=== PATIENT | male | born 2005 | race Two or more races ===

== ENCOUNTER 2024-03-11 12:05 | Outpatient (OUT) | payer OTHER, SELFPAY ==
--- NOTE | 2024-03-11 | XR_ITS ---
The [address] [address] Patient Name: CHARLOTTE GENTILE MRN: [id number] date: 2005 Sex: M Assigned Patient Location: Current Patient Location: Accession/Order Number: [id number] Exam Date: 03/11/2024 12:15 Report Date: 03/11/2024 12:50 At the request of: DEISI RENO Procedure: XR shoulder RT min 2V PROCEDURE: XR shoulder RT min 2V COMPARISON: None. HISTORY: RIGHT SHOULDER PAIN FINDINGS: BONES: No acute fracture or dislocation. The glenohumeral and acromioclavicular joints are intact. There is a subtle area of calcific density noted along the humeral head on the scapular Y view, the exact location cannot be determined SOFT TISSUES:Negative. No visible soft tissue swelling. EFFUSION:None visible. OTHER: Negative. XR/XR shoulder RT min 2V IMPRESSION: Calcific density along the humeral head on scapular Y view only, possibly representing calcific tendinitis Electronically authenticated by: KEE CEDILLO Date: 03/11/2024 12:50
== END 2024-03-11 12:06 | disposition home or self-care (01) ==
LOC: EC 12:05
PROVIDERS: Visit Provider Orthopaedic Surgery
DX: M25.511 Pain in right shoulder (principal)
CPT/HCPCS: 73030

== ENCOUNTER 2024-03-19 13:26 | Day surgery (SDC) | payer OTHER, SELFPAY ==
--- NOTE | 2024-03-19 | MR_ITS ---
[address] [address] Patient Name: CHARLOTTE GENTILE MRN: [id number] date: 2005 Sex: M Assigned Patient Location: MRI Current Patient Location: MRI Accession/Order Number: [id number] Exam Date: 03/19/2024 14:38 Report Date: 03/21/2024 05:01 At the request of: DEISI RENO Procedure: MR shoulder RT w con EXAMINATION: MR shoulder RT w con HISTORY: Acute pain of right shoulder M25.511 COMPARISON: No relevant comparison available. TECHNIQUE: A variety of imaging planes and parameters were utilized for visualization of suspected pathology. Imaging was performed with intra-articular contrast. FINDINGS: ROTATOR CUFF REGION CUFF TENDONS: Minimal increased signal intensity in the supraspinatus tendon indicates tendon degeneration and/or tendinitis. No navya tear is seen. CUFF MUSCLES: Normal appearing muscles. DELTOID: Normal. No significant atrophy or tear. LONG BICEPS TENDON: Normal. No abnormal signal, attrition, or tear. LABRUM/BICEPS ANCHOR SUPERIOR: Normal. No visible labral tear or biceps anchor pathology. ANTERIOR/INFERIOR: Normal. No visible tear or attrition. POSTERIOR: Normal. No posterior labrum abnormality. CAPSULE ANTERIOR/INFERIOR: Normal. No visible capsular laxity or thickening. Type I origin of the middle glenohumeral ligament. POSTERIOR: Normal. No visible capsular laxity or thickening. AC JOINT REGION AC JOINT: Normal acromioclavicular joint. AC LIGAMENTS: Normal acromioclavicular ligament. CC LIGAMENTS: Normal coracoclavicular ligaments. ACROMION: Lateral downsloping narrowing the acromial-humeral interval to 6.5 mm. SUBACROMIAL BURSA: Normal. No significant effusion. HYALINE CARTILAGE: Normal. No visible cartilage narrowing or focal defect. OTHER BONES: Normal proximal humerus, glenoid, and coracoid. OTHER OBSERVATIONS: Negative. No other significant findings or glenohumeral effusion. MR/MR shoulder RT w con IMPRESSION: 1. Mild strain/tendinitis involving the distal supraspinatus tendon. 2. Lateral downsloping acromion process narrowing the acromiohumeral interval which would predispose to rotator cuff injury. 3. No labral tear. Electronically authenticated by: DEISI EGAN Date: 03/21/2024 05:01
--- NOTE | 2024-03-19 | FL_ITS ---
[address] [address] Patient Name: CHARLOTTE GENTILE MRN: [id number] date: 2005 Sex: M Assigned Patient Location: MRI Current Patient Location: MRI Accession/Order Number: [id number] Exam Date: 03/19/2024 13:48 Report Date: 03/19/2024 14:55 At the request of: DEISI RENO Procedure: FL guided needle placement EXAMINATION: FL arthrogram shoulder, FL guided needle placement HISTORY: Acute pain of right shoulder M25.511 COMPARISON: No relevant comparison available. TECHNIQUE: An arthrogram was performed under fluoroscopic guidance using non-ionic contrast material in the usual sterile manner after obtaining informed consent. Standard level fluoroscopic mode of operation utilized. FINDINGS: JOINT: Right shoulder NEEDLE: 25 gauge, 3.5 spinal needle. MEDICATION: 2 mL buffered 1% lidocaine for subcutaneous anesthesia. Approximately 8 mL injected into joint space consisting of a mixture of 5 mL Omnipaque-300, 5 mL 1% Xylocaine and 0.2 mL Dotarem. TECHNIQUE: Anterior approach under fluoroscopic guidance. CLINICAL: Slight decrease in pain following the injection. COMPLICATIONS: None. OTHER: Negative. FL/FL guided needle placement IMPRESSION: 1. Technically successful arthrogram without complication. 2. Please see separate MRI arthrogram report. Electronically authenticated by: DEISI EGAN Date: 03/19/2024 14:55
--- NOTE | 2024-03-19 | FL_ITS ---
[address] [address] Patient Name: CHARLOTTE GENTILE MRN: [id number] date: 2005 Sex: M Assigned Patient Location: MRI Current Patient Location: MRI Accession/Order Number: [id number] Exam Date: 03/19/2024 13:48 Report Date: 03/19/2024 14:55 At the request of: DEISI RENO Procedure: FL arthrogram shoulder EXAMINATION: FL arthrogram shoulder, FL guided needle placement HISTORY: Acute pain of right shoulder M25.511 COMPARISON: No relevant comparison available. TECHNIQUE: An arthrogram was performed under fluoroscopic guidance using non-ionic contrast material in the usual sterile manner after obtaining informed consent. Standard level fluoroscopic mode of operation utilized. FINDINGS: JOINT: Right shoulder NEEDLE: 25 gauge, 3.5 spinal needle. MEDICATION: 2 mL buffered 1% lidocaine for subcutaneous anesthesia. Approximately 8 mL injected into joint space consisting of a mixture of 5 mL Omnipaque-300, 5 mL 1% Xylocaine and 0.2 mL Dotarem. TECHNIQUE: Anterior approach under fluoroscopic guidance. CLINICAL: Slight decrease in pain following the injection. COMPLICATIONS: None. OTHER: Negative. FL/FL arthrogram shoulder IMPRESSION: 1. Technically successful arthrogram without complication. 2. Please see separate MRI arthrogram report. Electronically authenticated by: DEISI EGAN Date: 03/19/2024 14:55
--- OUTSIDE RECORDS SUMMARY | 2024-03-19 13:46 | XMS_ITS | CCD ---
Author Organization [facility] Care Team Providers Care Green Meat Packer Name Role Phone DR KELSEY ELIAS Primary Care Unavailable ALLYSSA PALMER Attending Unavailable ALLYSSA PALMER Consulting Unavailable ALLYSSA PALMER Admitting Unavailable KEE ORTEGA Consulting Unavailable Kelsey Elias Unavailable Problems Problem Classification Problem Date Documented Da te Episodic/Chronic Allergic reactions (1 source) Allergic contact dermatitis due to plants, except food; Translations: [Allergic contact dermatitis due to plants, except food] Episodic Other non-traumatic joint disorders (4 sources) Pain in right ankle and joints of right foot; Translations: [PAIN IN RIGHT ANKLE] Onset: 08-15-2022 Episodic Other non-traumatic joint disorders (1 source) Arthralgia of the ankle and/or foot; Translations: [Pain in right ankle and joints of right foot] Episodic Other non-traumatic joint disorders (2 sources) Pain in right shoulder; Translations: [Right shoulder pain] 03-08-2024 Episodic Spondylosis; intervertebral disc disorders; other back problems (1 source) Low back pain; Translations: [Low back pain, unspecified] Episodic Sprains and strains (1 source) Sprain of ankle; Translations: [Sprain of other ligament of right ankle, initial encounter] Episodic Results Test Name Value Interpretation Reference Range Facil ity XR ANKLE RT MIN 3 VIEWSon XR ANKLE RT MIN 3 VIEWS EXAM: XR ANKLE RT MIN 3 VIEWS HISTORY: Pain of right ankle joint COMPARISON: X-rays 08/12/2022 TECHNIQUE: 3 views FINDINGS: Again demonstrated is lateral subcutaneous soft tissue edema. No fracture, dislocation, subluxation or osseous lesion. Joint spaces are normal. Multi partite os trigonum IMPRESSION: Persistent lateral soft tissue edema with no visualized osseous abnormality. Electronically authenticated by: KEE ORTEGA Date: 2022-08-15 16:11 Normal [facility] Vital Signs Date Time Vital Sign Value Performing Clinician Facility 03-08-2024 13:53-0400 Body height 187.96 cm [facility] 03-08-2024 13:53-0400 Body mass index (BMI) [Ratio] 26.9 kg/m2 [facility] 03-08-2024 13:53-0400 Body weight 95.25 kg [facility] 03-08-2024 13:53-0400 Diastolic blood pressure 78 mm[Hg] [facility] 03-08-2024 13:53-0400 Heart rate 66 /min [facility] 03-08-2024 13:53-0400 SaO2% (BldA) [Mass fraction] 97 % [facility] 03-08-2024 13:53-0400 Systolic blood pressure 122 mm[Hg] [facility] 04-25-2023 09:15-0400 Body height 187.96 cm Kelsey Elias Other [employer] [facility] [employer] Other 04-25-2023 09:15-0400 Body mass index (BMI) [Ratio] 26.96 kg/m2 Kelsey Elias Other [employer] Other 04-25-2023 09:15-0400 Body weight 95.26 kg Kelsey Elias Other [employer] Other 04-25-2023 09:15-0400 Diastolic blood pressure 70 mm[Hg] Kelsey Elias Other [employer] Other 04-25-2023 09:15-0400 SaO2% (BldA) [Mass fraction] 97 % Kelsey Elias Other [employer] Other 04-25-2023 09:15-0400 Systolic blood pressure 111 mm[Hg] Kelsey Elias Other [employer] Other Encounters Encounter Date Encounter Type Care Provider Facility Start: 03-08-2024 Patient encounter status [facility] Start: 03-08-2024 End: 03-08-2024 ambulatory [facility] Work Phone: Start: 03-08-2024 End: 03-08-2024 Encounter for general adult medical examination without abnormal findings [facility] Start: 03-08-2024 End: 03-08-2024 Patient encounter procedure [facility] Work Phone: Start: 04-25-2023 End: 04-25-2023 ambulatory Kelsey Elias Other [employer] Other Start: 04-25-2023 Encounter for genera l adult medical examination without abnormal findings Kelsey Elias [facility] Start: 04-25-2023 Periodic preventive med est patient 18-39 yrs Kelsey Elias [facility] Start: 08-15-2022 End: 08-16-[address] KELSEY ELIAS Facility: Start: 04-25-2022 Child health medical examination Kelsey Elias Other [employer] Other Procedures Date Procedure Procedure Detail Performing Clinician History and physical examination, sports participation Kelsey Elias Other Plan of Treatment Date Care Activity Detail Author Start: 03-08-2024 Patient referral [facility] Work Phone: Patient referral [facility] Work Phone: Immunizations Immunization Date Immunization Notes Care Provider Fa cili 02-25-2016 diphtheria, tetanus toxoids and acellular pertussis vaccine, unspecified formulation Kelsey Elias Other [facility] 02-25-2016 meningococcal oligosaccharide (groups A, C, Y and W-135) diphtheria toxoid conjugate vaccine (MCV4O) Kelsey Elias Other [facility] Payers Date Payer Category Payer Unknown [id number] 1960 Unknown [id number] Social History Date Type Detail Facility Unknown if ever smoked [employer] Other Sex Assigned At Sex Assigned At Bir th [employer] Other Start: 03-08-2024 Tobacco smoking status NHIS Never smoked tobacco (finding) [facility] Start: 2005 Sex Assigned At Male F [facility] Hospital Discharge instructions 03-08-2024 Note Date & Type Note Facility 03-08-2024 Hospital Discharg e instructions Ambulatory OrdersReferral to Orthopedic Surgery Time Frame: 03/08/24, Location: None Selected [facility] Work Phone: Evaluation note 04-25-2023 Note Date & Type Note Facility 04-25-2023 Evaluation note Encounter Date Diagnosis Assessment Notes Apr, Well adult exam (ICD-10 - Z00.00) We have discussed the necessity of following up with PCP regularly as well as specialists, as needed. Discussed F/U with dentistry and optometry at least yearly. Discussed all preventative measures/ cancer screenings as applicable to this patient. Emphasized the importance of a reduced fat, low carb diet to promote heart health and controlled blood sugars. Reviewed social history and ensured patient is safe within the home today. Pt denies any abuse of alcohol, nicotine, caffeine or recreational drugs. I have ensured patient is of stable mental and physical health today. We have discussed appropriate F/U schedule as well as blood work and vaccinations that apply. All questions answered and patient is sent home pleased, without concerns. form completed for college sports. [employer] [facility] [employer] Other Evaluation note Note Date & Type Note Facility Evaluation note Diagnosis Onset Date Shoulder pain, right acute Wellness examination acute [facility] Work Phone: History general Narrative - Reported Note Date & Type Note Facility History general Narrative - Reported Type Medical History Allergic contact sean matitis due to plants, except food Medical History Pain in right ankle and joints of right foot Surgical History ADENOIDECTOMY Surgical History PE TUBES Hospitalization History SEE SURGICAL HX [employer] Other Summary Purpose Family History No Family History Records Found Advance Directives Advance Directive Response Recorded Date/ Time Advance Directives No March 08 1:48pm Chief Complaint and Reason for Visit Chief Complaint physical/shoulder is sues Reason for Visit Shoulder pain, right Wellness examination Additional Source Comments (unrecognized sect ion and content) No Status Records Found INFORMATION SOURCE (unrecogn ized section and content) DATE CREATED AUTHOR 08/20/2022 [employer] [facility] REASON FOR VISIT (unrecogniz ed section and content) wellness Care Teams (unrecognized sec tion and content) Team Status: Active Member Role Status Dates Kelsey Elias MD Primary Care Provider Active Team Status: Inactive Member Role Status Dates Kelsey Elias MD Primary Care Provide r, Attending Provider Active Start: March 08, 2024 End: March 08, 2024 Goals (unrecognized section and content) Goals may be documented in a n alternate section FOR RECORDS PERTAINING TO PATIENTS WHO ARE OR HAVE BEEN ENROLLED IN A CHEMICAL DEPENDENCY/SUBSTANCEABUSE PROGRAM, SOME INFORMATION MAY BE OMITTED. This clinical summary was aggregated from multiple sources. Caution should be exercised in using it in the provision of clinical care. This summary normalizes information from multiple sources, and as a consequence, information in this document may materially change the coding, format and clinical context of patient data. In addition, data may be omitted in some cases. CLINICAL DECISIONS SHOULD BE BASED ON THE PRIMARY CLINICAL RECORDS. [facility]. provides no warranty or guarantee of the accuracy or completeness of information in this document.
[2024-03-19] MEDS: LIDOCAINE HCL 15 ML, SODIUM BICARBONATE 2 MEQ INJ (14:10)
--- NOTE | 2024-03-19 15:48 | SUR.PREOP ---
03/12/24 spoke with pt mom to set up appt date, time, review procedure and prep.
== END 2024-03-19 14:40 | disposition home or self-care (01) ==
LOC: MRI 13:26
PROVIDERS: Radiology Diagnostic Radiology; Visit Provider Orthopaedic Surgery
DX: M25.511 Pain in right shoulder (principal)
CPT/HCPCS: 23350; 73222; 77002; A9575; Q9967

== ENCOUNTER 2025-08-13 06:57 | Outpatient (OUT) | payer OTHER, SELFPAY ==
--- OUTSIDE RECORDS SUMMARY | 2021-06-21 09:15 | XMS_ITS | Continuity of Care Document ---
Author Organization [facility] Address [address] [place] [address] Phone Care Team Providers Care Supervisor [place] Name Role Phone Chadd Avilez Unavailable Unavailable Procedures Procedure Date CHIROPRACTIC MANIPULATION Imm Admin Through 17 Yrs Of Age 021 Meningococcal Conjugate Vaccine 021 CHIROPRACTIC MANIPULATION Advance Directives Directive Yes / No Effective Date File Name No Information Encounters Encounter Description Practice Location Reason(s) For Visit Diagnoses Date Provider Providers Copied on Encounter [facility], [address] [place] [address], [id number] , tel: [phone] [facility] lumbar spine (chief complaint) lumbar spine (chief complaint) Segmental and somatic dysfunction of lumbar regionLow back pain, unspecifiedSegmental and somatic dysfunction of cervical regionCervicalgia 1 Raghav Florentino. [address] [place] [address], [id number] , [place]. tel: [phone] [facility], [address] [place] [address], [id number] , [place] tel: [phone] [facility] No Information 1 Margarita Bryan. [address] [place] [address], [id number] , [place]. tel: [phone] [facility], [address] [place] [address], [id number] , tel:+ [phone] [facility] lumbar spine (chief complaint) lumbar spine (chief complaint) Segmental and somatic dysfunction of lumbar regionLow back painSegmental and somatic dysfunction of cervical region 1 Raghav Florentino. [address] [place] [address], [place], [place], [id number] , [place]. tel: [phone] Family History Family Member Type Diagnosis Age At Onset No Information Immunizations Vaccine Date Status Comments meningococcal B, OMV, 2 dose schedule refused Source: New Immuniza tion Record Hep A (ped/adol, 2 dose) refused Leslie rce: New Immunization Record HPV (9-valent) refused Source: New I mmunization Record Meningococcal MCV4O administered Source: New Immunization Record Payers Payer name Insurance type Covered green party ID Authoriza tion(s) [employer] [place] [employer] [id number] [employer] [place] [employer] [id number] Social History Type Description Quantity Date Captured Comments Alcohol Use Details Unknown Caffeine Use Details Unknown Tobacco Use Status No Information Smoking Status No Information Sex Male Sexual Orientation Don't Know Gender Identity Male Chief Complaint And Reason For Visit From encounter dated '06/21/2021 14:15'. lumbar spine (chief complaint) lumbar spine (chief complaint). Description: Pt reports general soreness in neck and back from football Reason For Referral Reason For Referral No Information History Of Present Illness Encounter Date Complaint History Of Prese nt Illness lumbar spine lumbar spine Pt reports gener al soreness in neck and back from football lumbar spine C/O low back kristi n with onset over a year ago playing sports. Recent flare up while playing basketball. Sx are the result of regular ADL'S. No specific injury or trauma is noted. Pain is primarily at L3-L5 PVM on the Rt. & Lt. and extends to the SI joint, Rt. & Lt. Pain is local, dull, and without radiation to the lower extremities. No sensory or motor changes noted. Increase in pain with movement/ROM and ADL'S. Some decrease in symptoms with rest. No change in the pain pattern from the onset of symptoms. Pain pattern is as prior times. lumbar spine Functional Status Date Functional Assessmen t No Information Instructions Date Instruction Additional Infor mation No Information Assessments Type Assessment Date assessment Segmental and somatic dysfunctio n of lumbar region assessment Low back pain, unspecified assessment Segmental and somatic dysfunctio n of cervical region assessment Cervicalgia impression Patient Care Teams Name Effective Dates (start - stop) Status Members No Information
--- OUTSIDE RECORDS SUMMARY | 2025-07-21 08:00 | XMS_ITS ---
Author Organization [facility] Address [address] [place] [address] Care Team Providers Care Mainframe Software Developer Name Role Phone Kelsey Elias M.D. Primary Care Provider Unavail able Chadd Devi Unavailable [phone] Self, Referral Unavailable Unavailable Kincaid, Kara Unavailable [phone] Allergies No Known Allergies Reason For Referral Reason ERIC....Obtain author ization for lumbar spine MRI Diagnosis 1 Lumbar radiculopathy (M54.16) Referral Organization [facility] Referring Provider First Name Chadd Referring Provider Last Name Marito Referring Provider Speciality Orthopedic Surgery Referred Organization [facility] lisandra Referred Address [place], [place], Procedure 1 MRI Lumbar Spine w/o Dye ([address]29) General Notes Saray Jackman 025 11:13:46 AM >PER MANUEL, NO AUTH REQUIERED COPY IN CHART MA NOTIF[facility] 07/22/2025 12:19:22 PM >Faxed order to Melvina Damian Monica 08/06/2025 01:31:26 PM > id, this was supposed to be for [facility], not [facility] - he is scheduled for Monday. [facility] is asking for the auth. Can you please resubmit for [facility] and send auth there? Thank you, Saray Jackman 08/07/2025 08:16:56 AM >NO AUTH REQUIRED. OK TO CHANGE FACILITY REF FAXED TO Melvina DAMIAN Monica 08/11/2025 03:23:48 PM > PER [facility], AUTH REQUIRED SO THEY WONT DO THE MRI WITHOUT. OURS STATES NO AUTH REQUIRED.. [facility] DID PEER TO PEER REVIEW. AUTH APPROVED. AUTH # [id number] Referral Priority Urgent REASON FOR VISIT LOW BACK SPORTS INJURY Social History Tobacco Use: Social History Observation Description Date Details (start date - stop date) Never Smoker NA - NA AUDIT-C (Standard) Question Answer Notes Did you have a drink containing alcohol in the p ast year? Yes How often did you have a drink containing alcohol in the past year?Declined to specify (0 point)How many drinks did you have on a typical day when you were drinking in the past year?Declined to specify (0 point)How often did you have six or more drinks on one occasion in the past year?Declined to specify (0 point)Mkqntd3LprwbnhhqznkpfIcldskglOqurseg Control (Standard) Question Answer Notes Tobacco use: Nonsmoker Problems Problem Type SNOMED Code ICD Code Onset Dates Problem Status W/U Status Risk Notes Problem Lumbar pain (118195732) Lumbar pain (M54. 50) ActiveconfirmedProblemLumbar radiculopathy (591245347)Lumbar radiculopathy (M54.16)Activeconfirmed Encounters Encounter Location Date Provider Diagnosis [facility] [address] [place] [address] 07/21/2025 Nancy Pandeycomb Lumbar radiculopathy M54.16 Assessments Encounter Date Diagnosis (ICD Code) Assessment Notes Treatment Notes Treatment Clinical Notes Section Notes 07/21/2025 Lumbar radiculopathy (ICD-10 - M 54.16) Plan Of Treatment Pending Test Test Name Order Date MRI : Lumbosacral Spine W/O Contrast - 7 214707/21/2025 SCC- LUMBAR 4 VIEW 99081 07/21/2025 Referrals Referral Date Details 07/21/2025 07/21/2025, ERIC....O btain authorization for lumbar spine MRI, Nika MD Next Appt Details Follow Up: After MRI, Reason : Provider Name:Chadd Dorado, 08/13/2025 11:00:00 AM, [address], [place], [address], Progress Notes * ISAÍAS GENTILE:[birth year] (20 yo M)Acc No.[id number]:07/21/2025 Patient:CHARLOTTE JC :?[facility] Marquez[facility]:2005???Age:20 Y ???Sex:MaleDate:07/21/2025Phone:[phone]:[address], [place]Drf:Kelsey Elias M.D. Subjective: * Chief Complaints: * 1 . LOW BACK SPORTS INJURY. * HPI: ???General Info per Patient Report:?Have you seen another doctor in this practice??No.?Side affected is?Bilateral.?Joint or body part affected is?back.?Quality of pain is ?moderate.?Type of pain:?sharp.?Have you been seen by a Dentist in the last year ??Yes.?Do you have any dental problems??No.?Patient presents today for evaluation of his low back. 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 He has been getting shooting pain down his legs with numbness and tingling to the thighs is worse when he is running or twisting. He has been getting several months of physical therapy with the senior animal trainer at school and also was on an anti- inflammatory without improvement. Denies any bowel or bladder dysfunctions. * ROS: ???Neurological:?Numbness/ Tingling? Yes.? * Medical History: M edical History Verified. * Family History: N o Family History documented.. * Social History: E xercise regularly D o you exercise? Y es. W hat is your place of residence? W here do you live? P rivate home. A YANI-C (Standard) D id you have a drink containing alcohol in the past year? Y es, H ow often did you have a drink containing alcohol in the past year? D eclined to specify (0 point), H ow many drinks did you have on a typical day when you were drinking in the past year? D eclined to specify (0 point), H ow often did you have six or more drinks on one occasion in the past year? D eclined to specify (0 point), P oints 0 , I nterpretation N egative. T obacco Control (Standard) T obacco use: N onsmoker. * Medications: N one * Allergies: N .K.D.A. Objective: * Vitals: * Examination: ???General examination: ???The patient is a age-appropriate [], alert and oriented x3 and in no acute distress. Well-dressed and well-groomed. Stands with normal body position and in a calm mood. On examination today no tenderness to the lumbar spine. Positive straight leg raise bilaterally. Negative clonus. No pain with hip rotation. No weakness with hip flexion. Normal muscle tone and bulk.Good strength in the extremities. No lymphadenopathy. Skin is intact throughout the extremities with no open wounds or lesions. No masses appreciated. Palpable pulses distally and brisk capillary refill. Deep tendon reflexes are intact and symmetric. Intact sensation to light touch. No deformity oninspection. specific exam: x-ray imaging studies: x-ray 4 views of the lumbar spine taken today in clinic and interpreted by me show no acute abnormalities. specific exam: x-ray imaging studies: Assement:. ??? Assessment: * Assessment: 1.?Lumbar radiculopathy - M54.16 (Primary)??? Plan: * Treatment: ?Imaging: MRI : Lumbosacral Spine W/O Contrast - 36133? Referral To: ?Reason:ERIC....Obtain authorization for lumbar spine MRI 2.?Others?Imaging: SCC- LUMBAR 4 VIEW 39104 * Procedure Codes: 7 0 X-ray Lumbar Spine, 5 view complete * Follow Up: A fter MRI Forms: * Images: * Electronic signature of Nancy Marquez CNP on 08/13/2025 at 07:00 AM ESTSign off status: Pending * Provider: Steffany Marquez CNP Date: 09/20/2024 Generated for Printing/Faxing/eTransmitting on:?08/13/2025 07:00 AM EST History and Physical Notes * HPI (History of Present Illness) CategorySub-CategoryDetailNotesCategory NotesGeneral Info per Patient ReportSide affected isBilateralPatient presents today for evaluation of his low back. 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 He has been getting shooting pain down his legs with numbness and tingling to the thighs is worse when he is running or twisting. He has been getting several months of physical therapy with the senior animal trainer at school and also was on an anti-inflammatory without improvement. Denies any bowel or bladder dysfunctions.Joint or body part affected isbackQuality of pain is moderateType of pain:sharpHave you seen another doctor in this practice?NoHave you been seen by a Dentist in the last year?YesDo you have any dental problems? No Examination CategorySub-CategoryDetailNotesCategory NotesGeneral examination The patient is a age-appropriate [], alert and oriented x3 and in no acute distress. Well-dressed and well-groomed. Stands with normal body position and in a calm mood. On examination today no tenderness to the lumbar spine. Positive straight leg raise bilaterally. Negative clonus. No pain with hip rotation. No weakness with hip flexion. Normal muscle tone and bulk.Good strength in the extremities. No lymphadenopathy. Skin is intact throughout the extremities with no open wounds or lesions. No masses appreciated. Palpable pulses distally and brisk capillary refill. Deep tendon reflexes are intact and symmetric. Intact sensation to light touch. No deformity oninspection. specific exam: x-ray imaging studies: x-ray 4 views of the lumbar spine taken today in clinic and interpreted by me show no acute abnormalities. specific exam: x-ray imaging studies: Assement: Consultation Request Notes Referral Date Referring Provider Referred Provider Not della 07/21/2025 Chadd Devi NAR....Obta in authorization for lumbar spine MRI
--- OUTSIDE RECORDS SUMMARY | 2025-08-13 06:59 | XMS_ITS | CCD ---
Author Organization [facility] Care Team Providers Care Litigation Legal Secretary Name Role Phone DR KELSEY ELIAS Primary Care Unavailable ALLYSSA PALMER Attending Unavailable ALLYSSA PALMER Consulting Unavailable ALLYSSA PALMER Admitting Unavailable KEE ORTEGA Consulting Unavailable Kelsey Elias Unavailable Kelsey Elias MD Primary Care Provider [phone] Kelsey Elias MD Attending Provider [phone] Problems Problem ClassificationProblemDateDocumented DateEpisodic/ChronicAllergic reactions (1 source)Allergic contact dermatitis due to plants, except food; Translations: [Allergic contact dermatitis due to plants, except food]EpisodicOther non- traumatic joint disorders (4 sources)Pain in right ankle and joints of right foot; Translations: [PAIN IN RIGHT ANKLE]Onset: 75-45-2199EicqrqhoCysey non-traumatic joint disorders (1 source)Arthralgia of the ankle and/or foot; Translations: [Pain in right ankle and joints of right foot]EpisodicOther non-traumatic joint disorders (3 sources)Pain in right shoulder; Translations: [Right shoulder pain]03-08-2024 EpisodicSpondylosis; intervertebral disc disorders; other back problems (1 source)Low back pain; Translations: [Low back pain, unspecified]Episodic Sprains and strains (1 source)Sprain of ankle; Translations: [Sprain of other ligament of right ankle, initial encounter]Episodic Results Test NameValueInterpretationReference RangeFacilityXR ANKLE RT MIN 3 VIEWSon 32-83-5767GH ANKLE RT MIN 3 VIEWSEXAM: XR ANKLE RT MIN 3 VIEWS HISTORY: Pain of right ankle joint COMPARISON: X-rays 08/12/2022 TECHNIQUE: 3 views FINDINGS: Again demonstrated is lateral subcutaneous soft tissue edema. No fracture, dislocation, subluxation or osseous lesion. Joint spaces are normal. Multi partite os trigonum IMPRESSION: Persistent lateral soft tissue edema with no visualized osseous abnormality. Electronically authenticated by: KEE ORTEGA Date: 2022-08-15 16:11[facility] Vital Signs Date TimeVital SignValuePerforming ZqimyktznOzdrwkka80-90-4598 14:25-0400Body ebgvth366.96 cmKelsey Elias MD Work Phone: [facility]08-08-2025 14:25-0400 Body mass index (BMI) [Ratio]26.9 kg/t0UndmrvKelsey Elias MD Work Phone: [phone]30[facility]08-08-2025 14:25-0400 Body ltvavq27.25 kgKelsey Elias MD Work Phone: [phone]08-08-2025 14:25-0400 Diastolic blood wdawqnro78 mm[Hg]Kelsey Elias MD Work Phone: [phone]08-08-2025 14:25-0400 Heart rate76 /Kendy Elias MD Work Phone: [phone]21[facility]08-08-2025 14:25-0400 SaO2% (BldA) [Mass fraction]97 %Kelsey Elias MD Work Phone: [facility]08-08-2025 14:25-0400 Systolic blood mm[Hg]Kelsey Elias MD Work Phone: [facility]06-21-2024 13:53-0400 Body iaztvf532.96 cmWvumedicine [facility]06-21-2024 13:53-0400Body mass index (BMI) [Ratio]26.9 kg/j2BvcvofiluWvumedicine [facility]ville Hospital06-21-2024 13:53-0400Body ubtjoe58.25 kgWvumedicine [facility] Hospital06-21-2024 13:53-0400Diastolic blood dltnsfut35 mm[Hg][facility] 03-08-2024 13:53-0400Heart rate66 /minWvumedicine [facility]ville Hospital 03-08-2024 13:53-0929UuZ3% (BldA) [Mass fraction]97 %[facility]06-21-2024 13:53-0400Systolic blood dwxvfryh584 mm[Hg][facility]08-08-2023 09:15-0400Body oycukq856.96 cmKelsey Elias Other noAmnis Other 08-08-2023 09:15-0400Body mass index (BMI) [Ratio] 26.96 kg/y2YxpsgwKelsey Elias Other ReferralCandy Other 08-08-2023 09:15-0400Body cnvfxe22.26 kgKelsey Elias Other [facility] Other 08-08-2023 09:15-0400Diastolic blood uhjkbasf14 mm[Hg] Kelsey Elias Other [facility] Other 08-08-2023 09:15-7642CyS8% (BldA) [Mass fraction]97 % Kelsey Elias Other [facility] Other 08-08-2023 09:15-0400Systolic blood umcowvmc378 mm[Hg] Kelsey Elias Other ReferralCandy Other Encounters Encounter DateEncounter TypeCare ProviderFacilityStart: 04-25-2025 End: 64-12-1339sjncbdovqiKeqgzk E Braun MD Work Phone: [facility] Work Phone: Start: 04-25-2025 End: 74-15-9384Tnmrcuz encounter procedureKelsey Elias MD-[facility] Work Phone: Start: 74-05-2970Wwxqupz encounter statusRegency Hospital Cleveland Westtart: 03-08-2024 End: 12-38-4283qoesfxlulqKdvltawqeMetroHealth [facility] Work Phone: Start: 03-08-2024 End: 80-07-2764Xwrqovigl for general adult medical examination without abnormal findingsRegency Hospital Cleveland Westtart: 03-08-2024 End: 00-99-8858Elfsyxg encounter procedureFormerly [facility], [facility] Work Phone: Start: 04-25-2023 End: 02-34-5394fpjkaoppzsWmbmco Braun Other ReferralCandy Other Start: 11-26-7633Nfbnwtqps for general adult medical examination without abnormal findingsBronson Methodist Hospitalalli [facility] Hospitaltart: 17-18-1641Utildcrl preventive med est patient 18-39 yrsMarjustin [facility] Hospitaltart: 08-15-2022 End: 59-14-3271lngczpbuakZF KELSEY ELIASFacility:L2Eatyy: 19-32-3821Nbpcy health medical examinationTalitaalli Elias Other [facility] [employer] Other Procedures DateProcedureProcedure DetailPerforming ClinicianHistory and physical examination, sports participationKelsey Elias Other Plan of Treatment DateCare ActivityDetailAuthorStart: 37-88-7971Hrxzptu referralProtestant [facility]aconess Hospital Work Phone: Patient referralProtestant [facility]aconess Hospital Work Phone: Immunizations Immunization DateImmunizationNotesCare ZewcumlcPzaboram31-86-5585xxrznwqzbl, tetanus toxoids and acellular pertussis vaccine, unspecified formulationKelsey Elias Other [facility]06-09-2016 meningococcal oligosaccharide (groups A, C, Y and W-135) diphtheria toxoid conjugate vaccine (MCV4O)Kelsey Elias Other [facility] Payers DatePayer CategoryPayerPolicy [id number] Social History DateTypeDetailFacilityUnknown if ever smokedNew [place] [employer] Other Sex Assigned At BirthSex [facility] [employer] Other Start: 42-60-2593Wsbysfe smoking status NHISNever smoked tobacco (finding)[facility]tart: 45-96-0821Pjy [facility] At [facility]ex[facility] (finding)[facility] Hospital Discharge instructions 03-08-2024 Note Date & PpwqPzfdNscnzasv06-40-6909 Hospital Discharge instructionsAmbulatory Orders* Referral to Orthopedic Surgery Time Frame: 03/08/24, Location: None Selected [facility] Work Phone: Evaluation note 04-25-2023 Note Date & WoqaTlkiYkrijfij74-30-9745 Evaluation note* Encounter Date Diagnosis Assessment Notes Treatment Notes Treatment Clinical Notes Apr, Well adult exam (ICD-10 - Z00.00 ) We have discussed the necessity of following [...] vaccinations that apply. All questions answered and p atient is sent home pleased, without concerns. form completed for college sports. ReferralCandy Other Evaluation note Note Date & TypeNoteFacilityEvaluation note* Diagnosis Onset Date Resolution Status Shoulder pain, right acuteWellness examinationacute [facility] Work Phone: Evaluation note Note Date & TypeNoteFacilityEvaluation noteNo assessment information available [facility] Work Phone: History general Narrative - Reported Note Date & TypeNoteFacilityHistory general Narrative - Reported* Type Description Date Medical History Allergic contact dermatitis due to plants, except food Medical HistoryPain in right ankle and joints of right footSurgical History ADENOIDECTOMYSurgical HistoryPE TUBESHospitalization HistorySEE SURGICAL HX ReferralCandy Other Reason for referral (narrative) Note Date & TypeNoteFacilityReason for referral (narrative)No reason for referral information availableProtestant Deaconess Hospital Work Phone: Summary Purpose Family History No Family History Records Found Advance Directives Advance Directive Response Recorded Date/ Time Advance Directives No March 08 1:48pm Chief Complaint and Reason for Visit Chief Complaint physical/shoulder is sues Reason for Visit Shoulder pain, right Wellness examination Chief Complaint Admit Date Wellness, Physical April 25, 2025 2:2 0pm Additional Source Comments (unrecognized sect ion and content) No Status Records Found INFORMATION SOURCE (unrecogn ized section and content) DATE CREATED AUTHOR 08/20/[address] [facility] REASON FOR VISIT (unrecogniz ed section and content) wellness Care Teams (unrecognized sec tion and content) Team Status: Active Member Role Status Dates Kelsey Elias MD Primary Care Provider Active Team Status: Inactive Member Role Status Dates Kelsey Elias MD Primary Care Provide r, Attending Provider Active Start: March 08, 2024 End: March 08, 2024 Team Status: Inactive Member Role Status Dates Kelsey Elias MD Primary Care Provider Active Start: April 25, 2025 End: April 25, 2025Kelsey Elias MDAttending ProviderActiveStart: April 25, 2025 End: April 25, 2025 Goals (unrecognized section and content) Goals may [...] BE BASED ON THE PRIMARY CLINICAL RECORDS. [facility]. provides no warranty or guarantee of the accuracy or completeness of information in this document.
--- OUTSIDE RECORDS SUMMARY | 2025-08-13 07:00 | XMS_ITS | Clinical Summary ---
Author Organization [facility] Address [address] [place] [address] Care Team Providers Care Machine Trimmer Name Role Phone Unavailable Primary Care Provider Unavailabl e Social History Tobacco UseTypesPacks/DayYears UsedDateSmoking Tobacco: Never AssessedSex and Gender InformationValueDate RecordedSex Assigned at BirthNot on fileLegal Sex Male11/30/2022 6:52 PM EDTGender IdentityNot on fileSexual OrientationNot on file Last Filed Vital Signs Vital SignReadingTime TakenCommentsBlood Pqkmxvjo739/8611 12:00 PM EST Pulse--Temperature--Respiratory Rate--Oxygen Saturation--Inhaled Oxygen Concentration--Qhcirk22.4 kg (206 lb)08/12/2022 12:00 PM ESTHeight--Body Mass Index-- Plan of Treatment Not on file Insurance
--- OUTSIDE RECORDS SUMMARY | 2025-08-13 07:00 | XMS_ITS | Clinical Summary ---
Author Organization [facility] Address [address] [place], [place] [address] Care Team Providers Care Automation Analyst Name Role Phone Unavailable Primary Care Provider Unavailabl e Allergies No known active allergies Medications No known medications Social History Tobacco UseTypesPacks/DayYears UsedDateSmoking Tobacco: NeverSex and Gender InformationValueDate RecordedSex Assigned at BirthNot on fileLegal SexMale 12/20/2016 3:52 PM EDTGender IdentityNot on fileSexual OrientationNot on file Plan of Treatment Health MaintenanceDue DateLast DoneCommentsPeds To Adult Transition Initial Vyzjnbirhj09/16/2016Peds To Adult Transition Annual Mdeduoakbk00/16/2018HPV Vaccine (1 - Male 3-dose series)2019Meningococcal B Vaccine (1 of 2 - Standard)2020Anxiety Wuggcjxvg96/16/2022Depression Wgexycmdz45/16/2022HIV Qrcsnuixw95/16/2022Hepatitis C Dbvfxxpkw95/16/2022DTaP,Tdap,Td Vaccine (1 - Tdap)2023Hepatitis B Vaccine (1 of 3 - 19+ 3-dose series)3Covid- 19 Vaccine (1 - 2024- season)2025Influenza Vaccine (#1)2025 Insurance
--- OUTSIDE RECORDS SUMMARY | 2025-08-13 07:00 | XMS_ITS | Patient Health Record ---
Author Organization [facility] Address [address] [place] [address] Care Team Providers Care Bearing Grinder Name Role Phone Kelsey Elias M.D. Primary Care Provider Unavail able Chadd Devi Unavailable [phone] Self, Referral Unavailable Unavailable AlmaNancy Unavailable [phone] Reason For Referral Reason ERIC....Obtain author ization for lumbar spine MRI Diagnosis 1 Lumbar radiculopathy (M54.16) Referral Organization [facility] Referring Provider First Name Chadd Referring Provider Last Name Marito Referring Provider Speciality Orthopedic Surgery Referred Organization [facility] Referred Address [place], [place], Procedure 1 MRI Lumbar Spine w/o Dye (19657) General Notes Saray Jackman 025 11:13:46 AM >PER FERNANDO JACKSON AUTH REQUIERED COPY IN CHART MA NOTIFIED [facility] 07/22/2025 12:19:22 PM >Faxed order to Melvina Damian Monica 08/06/2025 01:31:26 PM > al, this was supposed to be for [facility], not [facility] - he is scheduled for Monday. [facility] is asking for the auth. Can you please resubmit for [facility] and send auth there? Thank you, aSray Jackman 08/07/2025 08:16:56 AM >NO AUTH REQUIRED. OK TO CHANGE FACILITY REF FAXED TO Melvina DAMIAN Monica 08/11/2025 03:23:48 PM > PER [facility], AUTH REQUIRED SO THEY WONT DO THE MRI WITHOUT. OURS STATES NO AUTH REQUIRED.. [facility] DID PEER TO PEER REVIEW. AUTH APPROVED. AUTH # [id number] Referral Priority Urgent Social History Tobacco Use: Social History Observation [...] in the past year?Declined to specify (0 point)Wdazgy3OwyhogypugagomEujzisgiLzernkx Control (Standard) Question Answer Notes Tobacco use: Nonsmoker Problems Problem Type SNOMED Code ICD Code Onset Dates Problem Status W/U Status Risk Notes Problem Lumbar radiculopathy (122011322) Lumbar r adiculopathy (M54.16) ActiveconfirmedProblemStrain of rotator cuff of right shoulder (disorder) (38683234504748740)Strain of right rotator cuff capsule, initial encounter (S46.011A)ActiveconfirmedProblemLumbar pain (728587954)Lumbar pain (M54.50) Activeconfirmed Encounters Encounter Location Date Provider Diagnosis [facility] [address] [place] [address] 07/21/2025 Nancy Reyesb Lumbar radiculopathy M54.16 Assessments Encounter Date Diagnosis (ICD Code) Assessment Notes Treatment Notes Treatment Clinical Notes Section Notes 07/21/2025 Lumbar radiculopathy (ICD-10 - M 54.16) Plan Of Treatment Pending Test Test Name Order Date MRI : Lumbosacral Spine W/O Contrast - 7 214707/21/2025 MRI ARTHROGRAM RIGHT SHOULDER 03/11/2024 SCC- SHOULDER 3 VIEW RIGHT 74861 024 SCC- LUMBAR 4 VIEW 50861 07/21/2025 Next Appt Details Provider Name:Chadd Torrez and, 08/13/2025 11:00:00 AM, [address], [place], [address], Insurance Providers Payer Name Payer Address Payer Phone Subscriber Number Group Number Insured Name Patient Relationship to Insured Coverage Start Date Coverage End Date [facility] [address] [address] [place] [address] [id number] Zachary GENITLE - patient is the [id number] 2024
--- NOTE | 2025-08-13 07:02 | MR_ITS ---
The [address] [address] Patient Name: CHARLOTTE GENTILE MRN: [id number] date: 2005 Sex: M Assigned Patient Location: MRI Current Patient Location: MRI Accession/Order Number: [id number] Exam Date: 08/13/2025 07:05 Report Date: 08/13/2025 08:44 At the request of: BOYD KNAPP NP Procedure: MR lumbar spine wo con MRI LUMBAR SPINE WITHOUT CONTRAST CLINICAL DATA: Chronic back pain with radiculopathy, greater on the left. No reported injury. COMPARISON: Plain films 08/27/2019 Multiecho imaging in the axial and sagittal plane was performed without contrast. Alignment is maintained on the sagittal sequences. No acute compression fractures or marrow edema are seen. There are Schmorl's nodes at the inferior endplate of L3 and the superior endplate of S1. There is minor Modic type II degenerative change at the lumbosacral junction. The conus medullaris is normal in caliber, position and signal intensity. No paraspinal soft tissue abnormalities are seen. From T12-L1 through L2-3, the discs are normal in height and signal intensity. No disc bulge or herniation is noted. No central or foraminal stenosis is seen. At L3-4, there is slight loss of disc height and desiccation. There is mild annular disc bulging. Mild thecal sac effacement and slight inferior foraminal encroachment is seen bilaterally, left greater than right. At L4-5, the disc is normal in height and signal intensity. There is minor disc bulging toward the neural foramen. There is no significant thecal sac effacement. There is slight inferior foraminal encroachment, left greater than right. At the lumbosacral junction, there is mild loss of disc height and disc desiccation. No significant disc bulge or herniation is seen. No central or foraminal stenosis is identified. MR/MR lumbar spine wo con IMPRESSION: MINOR DEGENERATIVE CHANGE, WITHOUT FOCAL DISC HERNIATION OR SIGNIFICANT STENOSIS. Impression dictated by: Maite Garcia M.D. 08/13/2025 8:44 AM Dictation Location: [place] [address] Electronically authenticated by: [id number] Y Date: 08/13/2025 08:44
== END 2025-08-13 06:58 | disposition home or self-care (01) ==
LOC: MRI 06:57
PROVIDERS: PCP Family Medicine; Visit Provider Nurse Practitioner
DX: M54.16 Radiculopathy, lumbar region (principal); M51.369 Other intervertebral disc degeneration, lumbar region without mention of lumbar back pain or lower extremity pain
CPT/HCPCS: 72148